=== PATIENT | male | born 1995 | race Caucasian/White ===

== ENCOUNTER 2017-10-01 23:45 | Emergency (ER) | payer SELFPAY, BC ==
[2017-10-02] MEDS: IBUPROFEN 600 MG TAB PO (01:33)
== END 2017-10-02 04:30 | disposition home or self-care (01) ==
LOC: FTE 23:45
DX: S93.402A Sprain of unspecified ligament of left ankle, initial encounter (principal); X58.XXXA Exposure to other specified factors, initial encounter; Y92.9 Unspecified place or not applicable
CPT/HCPCS: 73610; 99283-25

== ENCOUNTER 2018-06-16 04:10 | Emergency (ER) | payer SELFPAY | END 2018-06-16 05:08 | disposition home or self-care (01) | LOC: FTE 04:10 | DX: S90.862A Insect bite (nonvenomous), left foot, initial encounter (principal); F17.210 Nicotine dependence, cigarettes, uncomplicated; W57.XXXA Bitten or stung by nonvenomous insect and other nonvenomous arthropods, initial encounter; Y92.9 Unspecified place or not applicable | CPT/HCPCS: 99283 ==